=== PATIENT | male | born 1940 ===

== ENCOUNTER 2023-04-30 18:33 | Inpatient (IN) | payer OTHER ==
[~2023-04-30] VITALS: Ht 165.1 cm; Wt 73.5 kg
--- NOTE | 2023-04-30 18:52 | NUR ---
SE RECIBE PTE ALERTA Y ORIENTADO EN [facility]ANCIA [facility] SE MIDEN S/V Y SE UBICA
[2023-05-01] MEDS ORDERED: FAMOTIDINE20 MG (08:54)
[2023-05-01] MEDS ORDERED: GLIMEPIRIDE4 M1 PO (08:54)
[2023-05-01] MEDS ORDERED: PANTOPRAZOLE SO40 MG (08:54)
[2023-05-15] MEDS ORDERED: ELIQUIS5 MG PO (07:16)
== END 2023-05-15 12:12 | disposition home or self-care (01) | DRG 444 ==
LOC: ER 18:33 → SURG 21:11 → MEDJ 21:11
PROVIDERS: Internal Medicine Infectious Disease; Nurse Practitioner Family; ADMIT Internal Medicine; ATTEND Internal Medicine
PROC: B24BZZZ Ultrasonography of Heart with Aorta (ICD-10-PCS; 2023-05-01)
PROC: 0F903ZZ Drainage of Liver, Percutaneous Approach (ICD-10-PCS; 2023-05-04)
PROC: 0F9430Z Drainage of Gallbladder with Drainage Device, Percutaneous Approach (ICD-10-PCS; 2023-05-04)
PROC: BW24ZZZ Computerized Tomography (CT Scan) of Chest and Abdomen (ICD-10-PCS; 2023-05-07)
PROC: 4A12X4Z Monitoring of Cardiac Electrical Activity, External Approach (ICD-10-PCS; 2023-05-08)
PROC: XW033E5 Introduction of Remdesivir Anti-infective into Peripheral Vein, Percutaneous Approach, New Technology Group 5 (ICD-10-PCS; 2023-05-09)
PROC: 0W993ZZ Drainage of Right Pleural Cavity, Percutaneous Approach (ICD-10-PCS; principal; 2023-05-10)
DX: K80.00 Calculus of gallbladder with acute cholecystitis without obstruction (principal); K75.0 Abscess of liver; U07.1 COVID-19; J90 Pleural effusion, not elsewhere classified; K52.89 Other specified noninfective gastroenteritis and colitis; E11.9 Type 2 diabetes mellitus without complications; Z79.4 Long term (current) use of insulin; I48.91 Unspecified atrial fibrillation; E78.5 Hyperlipidemia, unspecified; I10 Essential (primary) hypertension; B95.2 Enterococcus as the cause of diseases classified elsewhere